=== PATIENT | male | born 1990 | race Hispanic/Latino ===

== ENCOUNTER 2016-09-01 09:06 | Emergency (ER) | payer OTHER ==
[~2016-09-01] VITALS: Ht 154.9 cm; Wt 53.4 kg
[2016-09-01 09:16] VITALS: BP 132/82; PULSE 76; RESP 15; O2SAT 100
[2016-09-01] MEDS ORDERED: ERYT1OIN7 OP (09:52)
[2016-09-01] MEDS ORDERED: HYDR-4003 PO (09:52)
[2016-09-01] MEDS ORDERED: IBUP800T28 PO (09:52)
--- NOTE | 2016-09-01 10:05 | ED.REPORT ---
HPI-Eye Problem Date of Service Sep 01, 2016 ED Provider: Temo Ruiz DO 25-year-old male presents today with eye pain. 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 The pain was sudden and the patient had a sensation that there was something in his eye. He tried repeated flushes with water and saline however, the sensation of foreign body in the eye was never relieved. He states that his pain is been constant since onset. Pain is 6/10 and does not radiate. Saline washes did make the eye feel somewhat better for a time however pain returned shortly thereafter. He also states that the crops that he was picking yesterday had been recently sprayed with chemicals. He is not experiencing fever, loss of vision, diplopia. Nursing Notes Stated Complaint: EYE PAIN/WORK RELATED Chief Complaint: Eye Nursing Notes Reviewed: Yes Allergies: Coded Allergies: No Known Allergies (Unverified , 09/01/16) Scheduled Erythromycin Ophth Oint (Erythromycin Ophth Oint) 3.5 Gm Oint...g. 1 APPL OP QID Scheduled PRN Hydrocodone-Acetaminophen 5-325 mg (Hydrocodone-Acetaminophen 5-325 mg) 1 Each Tablet 1 TABLET PO Q4H PRN PRN For Pain Ibuprofen (Ibuprofen) 800 Mg Tablet 800 MG PO TID PRN PRN For Pain General Time Seen by MD: 09:30 Chief Complaint Right eye affected Hx Obtained From: Patient Arrived By: Walk-in Sudden in Onset?: Yes Onset Occurred: Yesterday Symptom Duration: Constant Progression Since Onset: Unchanged Location: : Eye right Quality: Aching, Painful, Sharp Radiation: Does not radiate Severity: Current: Pain level 6 out of 10 Associated with: Reports: Crusting in AM, Eye tearing, Foreign body sensation, Denies: Abdominal pain, Fever, Nausea, Photophobia Exacerbated by: Blinking Relieved by: Eyes closed, Irrigation Related History: Denies: Cataracts, Contact lens use, Diabetic retinopathy, Eye surgery, Glaucoma, Iritis, Macular degeneration, Other eye disease, Recent eye bleed, Recent eye trauma, Retinal detachment, Sickle cell disease, Uveitis Risk-Eye Problem Eye Injury Risk Stratification RF Statements: Risk factors reviewed Past Medical History Social History Alcohol Use: Denies alcohol use Drug Use: Denies drug use Review of Systems Constitutional: Denies: Chills, Fever Eyes: Reports: Blurred right, Discharge right, Eye pain right, Redness right, Denies: Diplopia, Photophobia, Visual loss right Complete sys rev & neg: except as marked. Physical Exam Pain better with tetracaine ointment No visible excoriations using fluorescein dye and Wilcox lamp Right Eye bulbar and palpebral Conjunctiva red and injected No periorbital swelling, erythema. Patient is able to open eye although this is painful, which improved after tetracaine no hyphema, no hypopyon, no consensual photophobia No visual changes No corneal abrasions noted No conjunctival ulcerations upper and lower eyelid explored and everted, no foreign bodies found. Initial Vital Signs Vital Signs (First) Date Time Temp Pulse Resp B/P Pulse Ox O2 Delivery O2 Flow Rate FiO2 09/01/16 09:16 36.7 76 15 132/82 100 Room Air Initial VS: Reviewed General / Const: Well-developed, Well-nourished ENT: Mucous membranes moist, No scleral icterus Neck: Supple, Non-tender, Full range of motion Respiratory: Breath sounds normal, Clear to auscultation, No respiratory distress Cardiovascular: Regular rate & rhythm, Heart sounds normal Extremities: Vascular intact Skin: Warm, Dry Neurologic: Alert, Oriented Psychiatric: Mood/affect normal, Behavior normal, Normal thought content Head / Eyes: Atraumatic, Normocephalic, PERRL, EOMI, No nystagmus, No periorbital redness, No periorbital swelling, No photophobia, No scleral icterus , Eyelids NL Re-Eval/Medical Decision Med Decision/Clinical Course Patient had no excoriation noted in the right eye with fluorescein dye evaluation. It is possible that a small foreign body may have entered the eye and caused some abrasion that is too small to take up fluorescein dye. Counseled Regarding: Diagnosis, Lab results, Need for follow-up, When/why to return to ED Discharge & Departure Primary Impression: Eye pain Laterality: right Qualified Code: H57.11 - Ocular pain, right eye Disposition: Home Discharge Condition All VS Reviewed: Yes Condition: Stable Patient Instructions: Corneal Abrasion (ED) Additional Instructions: Here today for pain in your right eye. After looking at your eye, we did find no evidence of scratching of the cornea, or foreign body in the eye. This could be result of minor abrasions to the eye by some foreign body that has removed himself from the eye or for some reason we were not able to see it on exam today. For this reason we were prescribing erythromycin ointment for the right eye to cover for infection as well as to increase healing of the eye. We will also prescribe pain medication that he may take for pain as needed. In the event that the pain in the eye becomes worse if swelling increases or if you in having fever symptoms please return to the emergency department. If pain is not improved with treatment please follow-up with primary care or urgent care as available. Referrals: NOPCP (PCP) Attending Statement The patient was seen and examined together with Dr. Tao on 09/01/16 and I have added additional information to the note above. Ruben Mcintosh DO Sep 01, 2016 09:57 Temo Ruiz DO Sep 01, 2016 12:03
== END 2016-09-01 11:00 | disposition home or self-care (01) ==
LOC: SED 09:06
DX: H57.11 Ocular pain, right eye (principal); W60.XXXA Contact with nonvenomous plant thorns and spines and sharp leaves, initial encounter; Y93.89 Activity, other specified; Y92.69 Other specified industrial and construction area as the place of occurrence of the external cause; Y99.0 Civilian activity done for income or pay

== ENCOUNTER 2016-09-04 06:20 | Emergency (ER) | payer OTHER ==
[~2016-09-04 06:20] MED LIST: ERYT1OIN7 OP; HYDR-4003 PO; IBUP800T28 PO
[2016-09-04 06:27] VITALS: BP 124/73; PULSE 69; RESP 16; O2SAT 100
--- NOTE | 2016-09-04 06:44 | ED.REPORT ---
HPI-Eye Problem Date of Service Sep 04, 2016 ED Provider: José Miguel Adrian MD Pt is a 25 year old male who presents to the ED complaining of constant right eye pain onset 4 days ago. He c/o associated right eye blurred vision, discharge , and redness. He denies any other symptoms. Pt reports that he was seen at [facility] for similar symptoms. Per pt, the clinic informed him that they extracted a foreign body from his right eye and prescribed eye drops. He reports that when he woke this morning the pain had returned with discharge. Per pt, the right eye redness has been improving since using the eye drops. The pt presented to the ED on 09/01/16 for similar symptoms and was diagnosed with corneal abrasion with no foreign body visualized. 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 Nursing Notes Stated Complaint: EYE PAIN/L AND I Chief Complaint: Eye Nursing Notes Reviewed: Yes ([employer], meds not reconciled) Allergies: Coded Allergies: No Known Allergies (Unverified , 09/01/16) Scheduled Erythromycin Ophth Oint (Erythromycin Ophth Oint) 3.5 Gm Oint...g. 1 APPL OP QID Scheduled PRN Hydrocodone-Acetaminophen 5-325 mg (Hydrocodone-Acetaminophen 5-325 mg) 1 Each Tablet 1 TABLET PO Q4H PRN PRN For Pain Hydrocodone-Acetaminophen 5-325 mg (Hydrocodone-Acetaminophen 5-325 mg) 1 Each Tablet 1-2 TABLET PO Q4H PRN PRN For Pain In Indonesian please Ibuprofen (Ibuprofen) 800 Mg Tablet 800 MG PO TID PRN PRN For Pain General Time Seen by MD: 06:40 Chief Complaint Right eye affected Hx Obtained From: Patient Arrived By: Walk-in Sudden in Onset?: No Onset Occurred: 4 days ago Symptom Duration: Constant Severity: Current: Moderate Severity: Maximum: Moderate Recent Healthcare: Recent doctor visit Similar Sx Previous: No Past Medical History Past Medical History Notes: Seen in ED 09/02 for eye pain, yesterday in eye clinic Past Medical History Denies Past Surgical History Denies Smoking History Unknown if Ever Smoker Social History Alcohol Use: Denies alcohol use Drug Use: Denies drug use Ambulatory Status Independent Review of Systems Constitutional: Denies: Fever Eyes: Reports: Blurred right, Discharge right, Eye pain right, Redness right, Denies: Diplopia Complete sys rev & neg: except as marked. Respiratory: Denies: Non-productive cough, Shortness of breath Physical Exam Initial Vital Signs Vital Signs (First) Date Time Temp Pulse Resp B/P Pulse Ox O2 Delivery O2 Flow Rate FiO2 09/04/16 06:27 36.4 69 16 124/73 100 Room Air Initial VS: Reviewed, Vital signs normal Neck: Supple, Full range of motion Respiratory: Breath sounds normal, Clear to auscultation, No respiratory distress Cardiovascular: Regular rate & rhythm, Heart sounds normal, Intact distal pulses Abdomen / GI: Soft, Non-tender Extremities: Vascular intact, Neuro intact Skin: Warm, Dry, No cyanosis Neurologic: Alert, Oriented, Nonfocal Psychiatric: Mood/affect normal, Behavior normal EYES: Trace marginal conjunctiva injection. No marked redness. No perinctal muculent. No fluorescein staining or abrasion. Eyelids and lashes were normal. Lid eversion was normal and anterior chambers were clear. General/Constitutional: Awake, Alert, Cooperative Procedures Slit Lamp Exam Normal. Time: 07:14 Procedure Performed by: ED physician Which Eye: Right Dilating Agent & Anesthesia: Anesthesia: Tetracaine Re-Eval/Medical Decision Med Decision/Clinical Course This is a 25-year-old healthy male presents with persistent right eye discomfort , with a foreign body sensation essentially size scratch. 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 However is physical exam did not reveal overt abrasion, retained foreign body in the department. She is seen by ophthalmology yesterday, and he gave a report initially that they thought that they did remove some foreign debris, although then he stated he was not sure and that was the case-they discharged on continued antibiotics. However this morning he still feels like he has a scratch in his left eye, he can see okay, but reports is still uncomfortable and he is quite certain there is something still there. He had no mucopurulent drainage, apparently there are some redness on I-that is now nearly completely resolved. He does not wear contact lenses. On exam, the patient clinically appears well. In fact I do not appreciate any conjunctival injection, his visual acuity is normal, slit lamp exam for me was negative--do not appreciate corneal abrasion, purulence, retained foreign body, or clear cause or signs of ongoing injury. A lid eversion was normal, no foreign body. I irrigated his eye with a small amount of saline initially, the patient remained persistently dissatisfied saying he still feels something there. Ultimately a full Ceferino lens liter irrigation was performed. Again the patient's exam appears well. He still has some mild discomfort tightness resolved with topical anesthetics. The patient's being discharged on continued erythromycin, I recommend he follow-up with the ophthalmology clinic again. But reassurance provided. Source of Hx: Old records Re-Evaluation/Progress : Time of Eval: 07:13 Re-Evaluation/Progress Note: Pt rechecked. Attempted to visualize a foreign body in the pt's eye with consent; no foreign body was visualized. Informed pt of plan for discharge. Pt understands and agrees with plan for discharge. F/U instructions and RTER warnings given. All questions addressed. Differential Diagnosis: Positive: Corneal abrasion (presumed, not visualized), Negative: Acute vision loss, Angle closure glaucoma, Burn, alkali, Burn, chemical, Central retinal art occl, Corneal laceration, Corneal ulceration, Endophthalmitis, Foreign body, intraocular, Foreign body, lid, Glaucoma, Globe rupture, Herpes simplex keratitis, Hordeolum (sty), Hyphema, Iritis/uvetis, Lens dislocation, Orbital cellulitis, Orbital fracture, Periorbital cellulitis, Preseptal cellulitis Counseled Regarding: Diagnosis, Need for follow-up, When/why to return to ED Discharge & Departure Primary Impression: Eye pain Laterality: right Qualified Code: H57.11 - Ocular pain, right eye Disposition: Home Discharge Condition All VS Reviewed: Yes Condition: Stable Additional Instructions: 1. Your eye exam remains re-assuring. 2. You describe having a corneal abrasion from a foreign body a few days ago, but I do not visualize a retained foreign body or severe injury on slit lamp exam. 3. We irrigated your eye today with a Ceferino lens to help make sure any/all debris are removed. 4. Continue the erythromycin ointment 5. Take ibuprofen 400-800mg three times a day for pain as needed. 6. You can put in a few drops of the tetracaine numbing medicaiton if needed for the next few days, but you should not need this medication for more than another 2 days. 7. Symptoms are expected to improve and resolve still over the next few days. If the symptoms are not resolving, you need to be seen and rechecked again at the travel specialist office (same one you were seen at yesterday) 8. If needed you can take hydrocodone/APAP 5/325 1-2 tabs up to every 6 hours for more severe discomfort. NOTE: this medication contains a narcotic and causes drowsiness. No driving or operating machinery for at least 4 hours after taking. 1.- Despues de hacer el examen de webb andrew, no encontramos nada de que preocuparnos. 2.- Usted describe eze raspadura de la cornea por un objeto extrano hace unos mcnulty sharona no puedo miki ninguno dentro del andrew despues de examinarlo con la lampara de hendidura. 3.- Por medio de irrigacion le limpiamos el andrew y con el lente Ceferino nos aseguramos de que no le quedara ningun material o basura que tuvieramos que sacarle de dentro. 4.- Continue poniendose el unguento de eritromicina. 5.- Rosanky Ibuprofen de 400-800mg morelia veces al cyndi para el dolor si lo llega a necesitar. 6.- Usted puede colocarse el tetracaine que es un medicamento entumecedor en gotas los proximos cuantos mcnulty si llegara a necesitarlo, sharona no debe tenerlo que hacer en morelia mcnulty mas. 7.- Los sintomas deben mejorar y desaparecer en los proximos cuantos mcnulty. Si no se le quitaran, necesitaria pasar al consultorio de un especialista para que deb lo vuelva a revisar (sonal lo hizo hai). 8.- Tambien puede tomarse el hydrocodone/APAP 5/325 1-2 tabletas hasta cada 6 horas para los destin mas ronda. NOTA: deb es un medicamento narcotico y causa adormecimiento. No vaya a manejar un automovil o maquinaria hasta 4 horas despues de haberselo tomado. Referrals: [facility] [employer] Att[facility] Portions of this note were transcribed by Sharyn Partida. I, Dr. Adrian personally performed the history, physical exam and medical decision-making; I reviewed and confirmed the accuracy of the information in the transcribed note. Signed by: Rox Baker, 09/04/16 and 07:40. copies to: [facility] José Miguel Adrian MD Sep 04, 2016 06:43 Sharyn Weber Sep 04, 2016 06:52
[2016-09-04] MEDS ORDERED: Tetracaine 0.5% 4 mL Ophthalmic Solution RIGHT_EYE ONE (06:55)
[2016-09-04] MEDS ORDERED: Fluorescein 0.6 mg Ophthalmic Strip RIGHT_EYE ONE (06:55)
[2016-09-04] MEDS ORDERED: 0.9% Sodium Chloride Inhalation Solution RIGHT_EYE ONE (06:55)
[2016-09-04] MEDS ORDERED: HYDR-4003 PO (08:12)
[2016-09-04 08:45] VITALS: BP 113/71; PULSE 60; RESP 14; O2SAT 100
== END 2016-09-04 08:53 | disposition home or self-care (01) ==
LOC: SED 06:20
DX: H57.11 Ocular pain, right eye (principal)